=== PATIENT | female | born 1980 | race African-American/Black ===

== ENCOUNTER 2021-01-15 09:46 | Emergency (ER) | payer OTHER ==
[2021-01-15 09:57] VITALS: BP 109/79; PULSE 101; TEMP 97.8; BMI 21.1
[2021-01-15] MEDS ORDERED: KETOROLAC TROMETHAMINE 60 MG/2 ML VIAL IM ONE (10:47)
[2021-01-15] MEDS ORDERED: CLINDAMYCIN HCL 150 MG CAPSULE (FP) PO ONE (10:47)
[2021-01-15] MEDS ORDERED: KETOROLAC TROMETHAMINE 60 MG/2 ML VIAL ONE (10:50)
[2021-01-15] MEDS ORDERED: CLINDAMYCIN HCL 150 MG CAPSULE (FP) ONE (10:51)
== END 2021-01-15 10:58 | disposition home or self-care (01) ==
LOC: JER 09:46 → JERFT 09:46
PROC: 3E0233Z Introduction of Anti-inflammatory into Muscle, Percutaneous Approach (ICD-10-PCS; principal; 2021-01-15)
DX: K08.89 Other specified disorders of teeth and supporting structures (principal)
CPT/HCPCS: 99284-25

== ENCOUNTER 2021-01-15 18:22 | Inpatient (IN) | payer OTHER ==
[2021-01-15 18:44] VITALS: BMI 21.1
[2021-01-15] MEDS ORDERED: FAMOTIDINE 20 MG/50 ML IVPB 20 MG/50 ML MG IVPB ONE ×2 (19:35→20:17)
[2021-01-15 20:17] LABS: BASO % 0.3 % (0-2.0); EOS % 0.1 % (0-4.5); HEMATOCRIT 32.4 % (32.4-45.2); HEMOGLOBIN 10.7 GM/dL (10.7-15.3); LYMPH % 3.5 % (8-40); MCH 27.3 pg (25.7-33.7); MEAN CELL VOLUME 82.8 fl (80-96); MONO % 2.9 % (3.8-10.2); NEUT % 93.2 % (42.8-82.8); PLATELET COUNT 168 K/MM3 (134-434); RBC 3.92 M/mm3 (3.60-5.2); RDW 14.7 % (11.6-15.6); WHITE BLOOD COUNT 10.8 K/mm3 (4.0-10.0)
[2021-01-15 20:36] LABS: CHLORIDE 106 mmol/L (98-107); SODIUM 137 mmol/L (136-145)
[2021-01-15 20:38] LABS: CALCIUM 8.8 mg/dL (8.5-10.1)
[2021-01-15 20:39] LABS: ALBUMIN 3.6 g/dl (3.4-5.0); ANION GAP 7 MMOL/L (8-16); BLOOD UREA NITROGEN 15.6 mg/dL (7-18); CO2 24 mmol/L (21-32); GLUCOSE,RANDOM 121 mg/dL (74-106); LIPASE 41 U/L (73-393); MAGNESIUM 1.8 mg/dL (1.8-2.4)
[2021-01-15 20:41] LABS: SGPT/ALT 479 U/L (13-61)
[2021-01-15 20:42] LABS: CREATININE 0.8 mg/dL (0.55-1.3); SGOT/AST 850 U/L (15-37)
[2021-01-15 20:43] LABS: BILIRUBIN,TOTAL 0.9 mg/dL (0.2-1); TOT PROT 6.7 g/dl (6.4-8.2)
[2021-01-15 20:44] LABS: ALK PHOS 115 U/L (45-117)
[2021-01-15 21:08] LABS: ANISOCYTOSIS 1+; MACROCYTOSIS 0; PLATELET ESTIMATE DECREASED
[2021-01-15] MEDS ORDERED: WATER IVPB ONE (21:25)
[2021-01-15] MEDS ORDERED: DEXTROSE 5% IVPB ONE (21:25)
[2021-01-15] MEDS ORDERED: ACETYLCYSTEINE IVPB ONE (21:25)
[2021-01-15] MEDS ORDERED: ACETYLCYSTEINE 20% 200MG/ML 30ML VIAL *FOR INJECTION USE ONLY IVPB ONE (22:28)
[2021-01-16] MEDS ORDERED: ACETYLCYSTEINE IVPB ONE ×2 (00:31→04:45)
[2021-01-16] MEDS ORDERED: DEXTROSE 5% IVPB ONE ×2 (00:31→04:45)
[2021-01-16] MEDS ORDERED: WATER IVPB ONE ×2 (00:31→04:45)
[2021-01-16] MEDS ORDERED: KETOROLAC TROMETHAMINE 15 MG/ML VIAL IVPUSH PRN (00:53)
[2021-01-16] MEDS ORDERED: SODIUM CHLORIDE 1,000 ML IV SCH (01:00)
[2021-01-16 07:22] LABS: HEMATOCRIT 31.3 % (32.4-45.2); HEMOGLOBIN 10.4 GM/dL (10.7-15.3); MCH 27.8 pg (25.7-33.7); MCHC 33.3 g/dl (32.0-36.0); MEAN CELL VOLUME 83.6 fl (80-96); MEAN PLT VOLUME 9.4 fl (7.5-11.1); PLATELET COUNT 161 K/MM3 (134-434); RBC 3.74 M/mm3 (3.60-5.2); RDW 14.6 % (11.6-15.6); WHITE BLOOD COUNT 7.7 K/mm3 (4.0-10.0)
[2021-01-16 07:35] LABS: CALCIUM 8.5 mg/dL (8.5-10.1); MAGNESIUM 2.1 mg/dL (1.8-2.4)
[2021-01-16 07:36] LABS: BLOOD UREA NITROGEN 16.1 mg/dL (7-18)
[2021-01-16 07:39] LABS: CREATININE 0.8 mg/dL (0.55-1.3); PHOSPHOROUS 3.2 mg/dL (2.5-4.9)
[2021-01-16 07:40] LABS: BILIRUBIN,TOTAL 0.6 mg/dL (0.2-1); TOT PROT 5.8 g/dl (6.4-8.2)
[2021-01-16 07:59] LABS: ALBUMIN 2.8 g/dl (3.4-5.0)
[2021-01-16] MEDS ORDERED: MAG HYDROX/AL HYDROX/SIMETH 30 ML UNIT-DOSE CUP PO PRN (11:08)
[2021-01-16] MEDS: morphine SULFATE IMMEDIATE RELEASE 30 MG TAB PO PRN ×2 (13:04→18:46)
[2021-01-16] MEDS: PANTOPRAZOLE 40 MG TABLET PO SCH (13:09)
[2021-01-16] MEDS ORDERED: LIDOCAINE VISCOUS 2% ORAL/TOP 100 ML BOTTLE MM PRN (16:51)
[2021-01-16] MEDS: LIDOCAINE VISCOUS 2% ORAL/TOP 20 ML UNIT-DOSE CUP MM PRN (17:19)
[2021-01-16] MEDS: BENZOCAINE 20 % GEL TUBE MM PRN (19:00)
[2021-01-16] MEDS ORDERED: MELATONIN 5 MG TABLETS PO ONE (23:54)
[2021-01-17 08:45] LABS: HEMATOCRIT 32.5 % (32.4-45.2); HEMOGLOBIN 10.8 GM/dL (10.7-15.3); MCH 27.8 pg (25.7-33.7); MCHC 33.3 g/dl (32.0-36.0); MEAN CELL VOLUME 83.3 fl (80-96); MEAN PLT VOLUME 9.6 fl (7.5-11.1); PLATELET COUNT 177 K/MM3 (134-434); RDW 14.9 % (11.6-15.6); WHITE BLOOD COUNT 7.4 K/mm3 (4.0-10.0)
[2021-01-17 08:59] LABS: CALCIUM 8.8 mg/dL (8.5-10.1)
[2021-01-17] MEDS: PANTOPRAZOLE 40 MG TABLET PO SCH (08:59)
[2021-01-17] MEDS: BENZOCAINE 20 % GEL TUBE MM PRN (08:59)
[2021-01-17 09:00] LABS: ALBUMIN 3.3 g/dl (3.4-5.0); BLOOD UREA NITROGEN 10.2 mg/dL (7-18)
[2021-01-17 09:02] LABS: BILIRUBIN,DIRECT 0.1 mg/dL (0.0-0.2)
[2021-01-17 09:03] LABS: CREATININE 0.6 mg/dL (0.55-1.3)
[2021-01-17 09:04] LABS: BILIRUBIN,TOTAL 0.5 mg/dL (0.2-1); TOT PROT 6.7 g/dl (6.4-8.2)
[2021-01-17] MEDS: LIDOCAINE VISCOUS 2% ORAL/TOP 20 ML UNIT-DOSE CUP MM PRN ×2 (10:13→18:21)
[2021-01-17] MEDS ORDERED: HYDROmorphone HCl 2 MG/ML VIAL IVPB PRN (12:27)
[2021-01-17] MEDS ORDERED: CLINDAMYCIN 600MG PREMIX IVPB 600 MG/50 ML BAG IVPB SCH (12:30)
[2021-01-17] MEDS ORDERED: IBUPROFEN 400 MG TABLET (FP) PO PRN ×2 (12:32→12:33)
[2021-01-17] MEDS: CLINDAMYCIN 600MG PREMIX IVPB 600 MG/50 ML BAG IVPB SCH ×2 (13:54→20:22)
[2021-01-17] MEDS ORDERED: INSULIN (LEVEMIR) 100 UNITS/ML UNITS SQ ONE (17:30)
[2021-01-17] MEDS: HEPARIN NA (PORCINE) 5,000 UNITS/ML 1ML VIAL SQ SCH (22:16)
[2021-01-18] MEDS: CLINDAMYCIN 600MG PREMIX IVPB 600 MG/50 ML BAG IVPB SCH ×4 (03:19→21:05)
[2021-01-18 08:51] LABS: HEMATOCRIT 35.2 % (32.4-45.2); HEMOGLOBIN 11.7 GM/dL (10.7-15.3); MCH 27.9 pg (25.7-33.7); MCHC 33.3 g/dl (32.0-36.0); MEAN CELL VOLUME 83.6 fl (80-96); MEAN PLT VOLUME 9.5 fl (7.5-11.1); PLATELET COUNT 215 K/MM3 (134-434); RBC 4.21 M/mm3 (3.60-5.2); RDW 14.5 % (11.6-15.6); WHITE BLOOD COUNT 7.1 K/mm3 (4.0-10.0)
[2021-01-18] MEDS: FAMOTIDINE 10 MG TABLET PO SCH (09:28)
[2021-01-18] MEDS: HEPARIN NA (PORCINE) 5,000 UNITS/ML 1ML VIAL SQ SCH ×2 (09:28→21:05)
[2021-01-18 09:30] LABS: CALCIUM 9.1 mg/dL (8.5-10.1)
[2021-01-18 09:31] LABS: ALBUMIN 3.8 g/dl (3.4-5.0); BLOOD UREA NITROGEN 10.1 mg/dL (7-18)
[2021-01-18 09:34] LABS: CREATININE 0.7 mg/dL (0.55-1.3)
[2021-01-18 09:36] LABS: BILIRUBIN,TOTAL 0.7 mg/dL (0.2-1); TOT PROT 7.7 g/dl (6.4-8.2)
[2021-01-18 13:08] LABS: TRANSGLUTAMINASE IGA < 2 U/mL (0-3); TRANSGLUTAMINASE IGG < 2 U/mL (0-5)
[2021-01-19] MEDS: CLINDAMYCIN 600MG PREMIX IVPB 600 MG/50 ML BAG IVPB SCH ×4 (03:06→21:51)
[2021-01-19 08:20] LABS: HEMATOCRIT 37.5 % (32.4-45.2); HEMOGLOBIN 12.6 GM/dL (10.7-15.3); MCH 27.9 pg (25.7-33.7); MCHC 33.5 g/dl (32.0-36.0); MEAN CELL VOLUME 83.3 fl (80-96); MEAN PLT VOLUME 9.4 fl (7.5-11.1); PLATELET COUNT 254 K/MM3 (134-434); RDW 14.6 % (11.6-15.6); WHITE BLOOD COUNT 6.6 K/mm3 (4.0-10.0)
[2021-01-19 08:31] LABS: CALCIUM 9.4 mg/dL (8.5-10.1)
[2021-01-19 08:32] LABS: BLOOD UREA NITROGEN 12.4 mg/dL (7-18)
[2021-01-19 08:35] LABS: CREATININE 0.7 mg/dL (0.55-1.3)
[2021-01-19 08:36] LABS: BILIRUBIN,TOTAL 0.5 mg/dL (0.2-1); TOT PROT 7.9 g/dl (6.4-8.2)
[2021-01-19] MEDS: HEPARIN NA (PORCINE) 5,000 UNITS/ML 1ML VIAL SQ SCH ×2 (10:12→21:50)
[2021-01-19] MEDS: FAMOTIDINE 10 MG TABLET PO SCH (10:13)
[2021-01-20] MEDS: CLINDAMYCIN 600MG PREMIX IVPB 600 MG/50 ML BAG IVPB SCH ×2 (04:20→10:08)
[2021-01-20] MEDS: HEPARIN NA (PORCINE) 5,000 UNITS/ML 1ML VIAL SQ SCH (10:07)
[2021-01-20] MEDS: FAMOTIDINE 10 MG TABLET PO SCH (10:07)
[2021-01-20 11:48] VITALS: BP 132/68; PULSE 99; TEMP 98.8
== END 2021-01-20 12:41 | disposition home or self-care (01) ==
LOC: JER 18:22 → OBSVTOIN 23:51 → JERBED 23:51 → INTOOBSV 23:52 → UNDOADMOB 23:52 → J7W 01-16 11:19
PROVIDERS: ADMIT Hospitalist
DX: K71.9 Toxic liver disease, unspecified (principal); R74.01 Elevation of levels of liver transaminase levels; T36.95XA Adverse effect of unspecified systemic antibiotic, initial encounter; K04.7 Periapical abscess without sinus; D72.829 Elevated white blood cell count, unspecified; F17.210 Nicotine dependence, cigarettes, uncomplicated
CPT/HCPCS: 36415; 70486-TC; 71046-TC-FY; 76705-TC; 80053; 80074; 80076; 80307; 82550; 82728; 83516; 83540; 83550; 83690; 83735; 84100; 84484; 84703; 85025; 85027; 86038; 86140; 93005; 93010; 99284-25; 99285-25; C9803; J1644; U0003; U0005

== ENCOUNTER 2021-10-15 07:21 | Emergency (ER) | payer OTHER ==
[2021-10-15 08:33] VITALS: BMI 20.4
[2021-10-15] MEDS ORDERED: SODIUM CHLORIDE 0.9% 500 ML INFUS.BAG IV ONE ×2 (10:42→13:11)
[2021-10-15] MEDS ORDERED: ACETAMINOPHEN 1000 MG/100 ML BAG IVPB ONE (10:42)
[2021-10-15] MEDS ORDERED: ACETAMINOPHEN INJECTION 100 ML IVPB ONE (10:49)
[2021-10-15 11:21] LABS: BASO % 0.5 % (0-2.0); EOS % 1.6 % (0-4.5); HEMATOCRIT 36.6 % (32.4-45.2); HEMOGLOBIN 11.7 GM/dL (10.7-15.3); LYMPH % 32.9 % (8-40); MCH 26.8 pg (25.7-33.7); MCHC 31.9 g/dl (32.0-36.0); MEAN PLT VOLUME 9.1 fl (7.5-11.1); MONO % 7.1 % (3.8-10.2); NEUT % 57.9 % (42.8-82.8); PLATELET COUNT 204 10^3/uL (134-434); RBC 4.35 M/mm3 (3.60-5.2); RDW 14.5 % (11.6-15.6); WHITE BLOOD COUNT 7.6 K/mm3 (4.0-10.0)
[2021-10-15] MEDS ORDERED: ALBUTEROL SO4 HFA INHALER IH ONE (11:30)
[2021-10-15 11:31] LABS: CHLORIDE 106 mmol/L (98-107); SODIUM 138 mmol/L (136-145)
[2021-10-15 11:32] LABS: CALCIUM 8.6 mg/dL (8.5-10.1)
[2021-10-15 11:33] LABS: ALBUMIN 3.7 g/dl (3.4-5.0); ANION GAP 7 MMOL/L (8-16); BLOOD UREA NITROGEN 13.6 mg/dL (7-18); CO2 25 mmol/L (21-32); GLUCOSE,RANDOM 88 mg/dL (74-106)
[2021-10-15 11:37] LABS: CREATININE 0.7 mg/dL (0.55-1.3); SGOT/AST 25 U/L (15-37); SGPT/ALT 39 U/L (13-61)
[2021-10-15 11:39] LABS: ALK PHOS 65 U/L (45-117); BILIRUBIN,TOTAL 0.2 mg/dL (0.2-1)
[2021-10-15 14:29] LABS: URINE APPEARANCE CLEAR; URINE BILIRUBIN NEGATIVE (NEGATIVE); URINE COLOR YELLOW; URINE GLUCOSE (UA) NEGATIVE (NEGATIVE); URINE KETONE NEGATIVE (NEGATIVE); URINE LEUK ESTERASE NEGATIVE (NEGATIVE); URINE NITRITE NEGATIVE (NEGATIVE); URINE PROTEIN NEGATIVE (NEGATIVE); URINE UROBILINOGEN 0.2 mg/dL (0.2-1.0)
[2021-10-15 15:15] VITALS: BP 92/57; PULSE 63; TEMP 97.5
== END 2021-10-15 17:01 | disposition home or self-care (01) ==
LOC: JER 07:21
PROC: 3E0333Z Introduction of Anti-inflammatory into Peripheral Vein, Percutaneous Approach (ICD-10-PCS; principal; 2021-10-15)
DX: M79.10 Myalgia, unspecified site (principal); R07.9 Chest pain, unspecified
CPT/HCPCS: 36415; 71046-TC-FY; 80053; 81003; 82550; 84484; 84703; 85025; 87086; 87804; 87807; 93005; 93010; 99285-25; C9803; J0131; U0003; U0005

== ENCOUNTER 2022-08-24 16:50 | Emergency (ER) | payer OTHER ==
[2022-08-24 16:57] VITALS: RESP 18; TEMP 97.8; BMI 21.4
[2022-08-24] MEDS ORDERED: ACETAMINOPHEN 1000 MG/100 ML BAG IVPB ONE (18:36)
[2022-08-24] MEDS ORDERED: METOCLOPRAMIDE HCL INJECTION 10 MG/2 ML VIAL IVPUSH ONE (18:36)
[2022-08-24] MEDS ORDERED: LACTATED RINGERS SOLUTION 1000 ML INFUS.BAG IV ONE (18:36)
[2022-08-24] MEDS ORDERED: ACETAMINOPHEN INJECTION 100 ML IVPB ONE (18:44)
[2022-08-24] MEDS ORDERED: METOCLOPRAMIDE HCL INJECTION 10 MG/2 ML VIAL ONE (18:44)
[2022-08-24 19:40] LABS: BASO % 0.5 % (0-2.0); EOS % 0.8 % (0-4.5); HEMATOCRIT 36.4 % (32.4-45.2); HEMOGLOBIN 12.1 GM/dL (10.7-15.3); LYMPH % 18.8 % (8-40); MCH 28.3 pg (25.7-33.7); MCHC 33.2 g/dl (32.0-36.0); MEAN PLT VOLUME 8.3 fl (7.5-11.1); MONO % 6.1 % (3.8-10.2); NEUT % 73.8 % (42.8-82.8); PLATELET COUNT 223 10^3/uL (134-434); RBC 4.28 M/mm3 (3.60-5.2); RDW 13.3 % (11.6-15.6); WHITE BLOOD COUNT 9.1 K/mm3 (4.0-10.0)
[2022-08-24 19:42] LABS: ALBUMIN 3.8 g/dl (3.4-5.0); BLOOD UREA NITROGEN 9.7 mg/dL (7-18); CALCIUM 9.2 mg/dL (8.5-10.1); MAGNESIUM 2.2 mg/dL (1.8-2.4)
[2022-08-24 19:45] LABS: CREATININE 0.7 mg/dL (0.55-1.3)
[2022-08-24 19:47] LABS: BILIRUBIN,TOTAL 0.6 mg/dL (0.2-1); INR 1.04 (0.83-1.09); TOT PROT 6.9 g/dl (6.4-8.2)
[2022-08-24 19:50] LABS: ACTIVATED PTT 29.4 SECONDS (25.2-36.5)
[2022-08-24 23:23] VITALS: BP 116/76; PULSE 70
== END 2022-08-24 23:23 | disposition home or self-care (01) ==
LOC: JER 16:50
PROC: 3E033GC Introduction of Other Therapeutic Substance into Peripheral Vein, Percutaneous Approach (ICD-10-PCS; principal; 2022-08-24)
DX: R51.9 Headache, unspecified (principal)
CPT/HCPCS: 0241U-QW; 36415; 70450-TC; 80053; 83735; 84703; 85025; 85610; 85730; 99285-25